=== PATIENT | male | born 1950 | race Caucasian/White ===

== ENCOUNTER 2020-04-02 10:49 | Day surgery (SDC) | payer MEDICARE, MEDICAID ==
[2020-04-02] VITALS (11 sets, daily range): BP systolic 118–198; BP diastolic 56–85
[~2020-04-02] VITALS: Ht 190.5 cm; Wt 97.9 kg
[~2020-04-02 10:49] MED LIST: DILT-36 PO; MAGN400C PO; POTASSIUM PO; ROSU20TA2 PO; VITA-268 PO
[2020-04-02] MEDS ORDERED: LORazepam 0.5 MG tablet PO PRN (11:05)
[2020-04-02] MEDS ORDERED: diphenhydrAMINE 25mg capsule PO PRN (11:05)
[2020-04-02] MEDS ORDERED: normal saline 1,000 ML IV SCH (11:05)
[2020-04-02] MEDS ORDERED: nitroGLYCERIN 0.4mg SUBLingual tab SL PRN ×2 (11:05→14:20)
[2020-04-02 11:40] LABS: BASOPHILS % (AUTO) 0.2 % (0-1); EOSINOPHILS % (AUTO) 0.1 % (0-6); HEMATOCRIT 46.6 % (42.0-52.0); HEMOGLOBIN 15.7 g/dl (14.0-17.9); LYMPHOCYTES # (AUTO) 9.1 X10'3 (1.1-4.8); LYMPHOCYTES % (AUTO) 62.7 % (21-51); MEAN CORPUSCULAR HEMOGLOBIN 31.2 PG (27.0-31.0); MEAN CORPUSCULAR HGB CONC 33.8 g/dL (33.0-36.5); MEAN CORPUSCULAR VOLUME 92.5 FL (78-98); MEAN PLATELET VOLUME 6.9 FL (7.4-10.4); MONOCYTES # (AUTO) 0.6 X10'3 (0-0.9); NEUTROPHILS # (AUTO) 4.8 X10'3 (1.8-7.7); PLATELET COUNT 258 X10'3 (140-440); RED BLOOD COUNT 5.04 X10'6 (4.70-6.10); RED CELL DISTRIBUTION WIDTH 13.4 % (11.5-14.5); WHITE BLOOD COUNT 14.6 X10'3 (4.5-11.0)
[2020-04-02 11:51] LABS: PARTIAL THROMBOPLASTIN TIME 28 SECONDS (22-32)
[2020-04-02 12:02] LABS: ALBUMIN 4.3 G/DL (3.4-5.0); ANION GAP 6 (8-16); BLOOD UREA NITROGEN 6 MG/DL (7-18); BUN/CREATININE RATIO 6.7 (5.4-32.0); CALCIUM 8.8 MG/DL (8.5-10.1); CHLORIDE 101 MMOL/L (99-107); CREATININE 0.89 MG/DL (0.60-1.10); GLUCOSE 102 MG/DL (70-104); POTASSIUM 4.7 MMOL/L (3.5-5.1); SODIUM 137 MMOL/L (135-145); eGFR 85 ML/MIN
[2020-04-02] MEDS ORDERED: ASPI-1264 PO (12:19)
[2020-04-02] MEDS ORDERED: VITC500T PO (12:19)
[2020-04-02] MEDS ORDERED: [UNRECOGNIZED DRUG - OTHER] PO (12:19)
[2020-04-02] MEDS ORDERED: POTA99TA21 PO (12:19)
[2020-04-02] MEDS ORDERED: ALPR0.5T8 PO (12:19)
[2020-04-02] MEDS ORDERED: VITA400C67 PO (12:19)
[2020-04-02] MEDS ORDERED: RESV1TAB2 PO (12:19)
[2020-04-02] MEDS ORDERED: UBID50TA3 PO (12:19)
[2020-04-02] MEDS ORDERED: TURM538C PO (12:19)
[2020-04-02 12:37] LABS: PLATELET ESTIMATE NORMAL; TOTAL CELLS COUNTED 100
[2020-04-02 12:38] LABS: SMUDGE CELLS 1+
[2020-04-02] MEDS ORDERED: midazolam 2 mg/2 ml injection ONE ×2 (13:15→13:41)
[2020-04-02] MEDS ORDERED: iohexol 350 MG/ML 50ML vial IV ONE (13:15)
[2020-04-02] MEDS ORDERED: fentaNYL/PF 50MCG/1 ML 2ML syringe ONE ×2 (13:15→13:41)
[2020-04-02] MEDS ORDERED: iohexol 350MG/ML 100ml bottle IV ONE (13:15)
[2020-04-02] MEDS ORDERED: LIDOcaine 1% (10mg/ml)w/preservative injection 20ml MDV ONE (13:15)
[2020-04-02] MEDS ORDERED: HYDROcodone/acetaminophen 10/325mg tab PO PRN (14:20)
[2020-04-02] MEDS ORDERED: OXAZEpam 15mg capsule PO PRN (14:20)
[2020-04-02] MEDS ORDERED: HYDROcodone/acetaminophen 5mg/325mg tablet PO PRN (14:20)
[2020-04-02] MEDS ORDERED: normal saline 1000ml 1,000 ML IV SCH (14:20)
[2020-04-02] MEDS ORDERED: ondansetron/PF 4mg/2ml inj IV PRN (14:20)
== END 2020-04-02 20:10 | disposition home or self-care (01) ==
LOC: SSTAY O 10:49
PROVIDERS: ATTEND Internal Medicine Cardiovascular Disease
DX: R94.39 Abnormal result of other cardiovascular function study (principal); I25.10 Atherosclerotic heart disease of native coronary artery without angina pectoris; G47.33 Obstructive sleep apnea (adult) (pediatric); I10 Essential (primary) hypertension; I48.0 Paroxysmal atrial fibrillation; F41.9 Anxiety disorder, unspecified; I44.7 Left bundle-branch block, unspecified; I42.9 Cardiomyopathy, unspecified; Z98.890 Other specified postprocedural states; Z88.8 Allergy status to other drugs, medicaments and biological substances; Z79.899 Other long term (current) drug therapy; R06.09 Other forms of dyspnea
CPT/HCPCS: 36415; 71046; 80048; 83880; 84439; 84443; 84480; 85025; 85610; 85730; 93005; 93458; 99152; 99153; C1769; J1644; J2001; J2250; J3010; J7030; Q0163; Q9967; A4620; A6258; C1760

== ENCOUNTER 2020-12-04 05:15 | Day surgery (SDC) | payer MEDICARE, MEDICAID ==
[2020-11-26 12:24] LABS: BASOPHILS % (AUTO) 0.2 % (0-1); EOSINOPHILS % (AUTO) 0.2 % (0-6); MONOCYTES # (AUTO) 0.8 X10'3 (0-0.9); NEUTROPHILS # (AUTO) 5.3 X10'3 (1.8-7.7)
[2020-11-26 12:29] LABS: LYMPHOCYTES # (AUTO) 9.7 X10'3 (1.1-4.8); LYMPHOCYTES % (AUTO) 61.1 % (21-51); MEAN CORPUSCULAR HEMOGLOBIN 31.4 PG (27.0-31.0); MEAN CORPUSCULAR HGB CONC 33.3 g/dL (33.0-36.5); MEAN CORPUSCULAR VOLUME 94.2 FL (78-98); MEAN PLATELET VOLUME 6.9 FL (7.4-10.4); MONOCYTES % (AUTO) 5.1 % (2-12); NEUTROPHILS % (AUTO) 33.4 % (42-75); PRE OP HEMATOCRIT 45.5 % (42.0-52.0); PRE OP HEMOGLOBIN 15.2 g/dL (14.0-17.9); PRE OP PLATELET COUNT 257 X10'3 (140-440); RED BLOOD COUNT 4.83 X10'6 (4.70-6.10); RED CELL DISTRIBUTION WIDTH 13.7 % (11.5-14.5)
[2020-11-26 12:38] LABS: ALBUMIN/GLOBULIN RATIO 1.3 (1.1-1.5); ALKALINE PHOSPHATASE 74 IU/L (46-116); BLOOD UREA NITROGEN 17 MG/DL (7-18); BUN/CREATININE RATIO 16.7 (5.4-32.0); CALCIUM 9.4 MG/DL (8.5-10.1); CHLORIDE 103 MMOL/L (99-107); CREATININE 1.02 MG/DL (0.60-1.10); PRE OP ALT 24 U/L (30-65); PRE OP ANION GAP 9 (8-16); PRE OP AST 15 U/L (10-37); PRE OP BILIRUB, TOTAL 0.5 MG/DL (0.0-1.0); PRE OP GLUCOSE 97 MG/DL (70-104); PRE OP POTASSIUM 3.6 MMOL/L (3.4-5.1); PRE OP SODIUM 140 MMOL/L (135-145); TOTAL CARBON DIOXIDE 28.5 MMOL/L (24-32); TOTAL PROTEIN 7.2 G/DL (6.4-8.2); eGFR 73 ML/MIN
[2020-11-26 12:55] LABS: TOTAL CELLS COUNTED 100
[2020-11-26 12:56] LABS: PLATELET ESTIMATE NORMAL
[2020-12-04] VITALS (15 sets, daily range): BP systolic 125–153; BP diastolic 73–91
[~2020-12-04] VITALS: Ht 190.5 cm; Wt 103.0 kg
[~2020-12-04 05:15] MED LIST changes: +ASPI-1264 PO; +CHOL10006 PO; -MAGN400C PO; -POTASSIUM PO; +RESV1TAB2 PO; +TURM538C PO; +UBID50TA3 PO; -VITA-268 PO; +ZINC50TA67 PO; +ringers solution, lacted 1,000 ML IV SCH
[2020-12-04] MEDS ORDERED: ceFAZolin 2gm in dextrose, iso 50 ML IV ONE (05:30)
[2020-12-04] MEDS ORDERED: famotidine 20mg tablet PO ONE (05:30)
[2020-12-04] MEDS ORDERED: vancomycin 1,500 MG in NS 300ml IV soln IV ONE (05:30)
[2020-12-04] MEDS ORDERED: LIDOcaine 1% (10mg/ml) 2ml vial ONE (06:22)
[2020-12-04] MEDS ORDERED: BUPIVAcaine/PF 2.5 mg/ml (0.25%) 30ml vial ONE (06:54)
[2020-12-04] MEDS ORDERED: cloNIDine hcl/PF 100mcg/ml inj ONE (07:14)
[2020-12-04] MEDS ORDERED: sevoflurane 250ml liquid IH ONE (07:14)
[2020-12-04] MEDS ORDERED: midazolam 2 mg/2 ml injection ONE (07:15)
[2020-12-04] MEDS ORDERED: fentaNYL/PF 50MCG/1 ML 2ML syringe ONE (07:15)
[2020-12-04] MEDS ORDERED: ondansetron/PF 4mg/2ml inj ONE (07:48)
[2020-12-04] MEDS ORDERED: propofol inj 20 ML IV ONE (07:48)
[2020-12-04] MEDS ORDERED: dexamethasone sod phosphate 4mg/ml inj. ONE (07:48)
[2020-12-04] MEDS ORDERED: ROPIVAcaine 0.5% (5mg/ml) 30ml vial ONE (07:48)
[2020-12-04] MEDS ORDERED: LIDOcaine 2% (20mg/ml) 5ml vial ONE (07:48)
[2020-12-04] MEDS ORDERED: rocuronium 10mg/ml inj IV ONE (07:48)
[2020-12-04] MEDS ORDERED: LIDOcaine 1%/PF 5ML 10 MG/ML VIAL ONE (07:48)
[2020-12-04] MEDS ORDERED: morphine 4 MG/ML inj SYRINge IV PRN (08:30)
[2020-12-04] MEDS ORDERED: proCHLORperazine 10 MG/2 ml inj IV PRN (08:30)
[2020-12-04] MEDS ORDERED: ondansetron/PF 4mg/2ml inj IV PRN (08:30)
[2020-12-04] MEDS ORDERED: ringers solution, lacted 1,000 ML IV SCH (08:30)
[2020-12-04] MEDS ORDERED: morphine 2 MG/ML inj. syringe IV PRN (08:30)
[2020-12-04] MEDS ORDERED: acetaminophen 1,000mg/100ml IV 100 ML IV PRN (08:30)
[2020-12-04] MEDS ORDERED: meperidine/PF 25mg/ml syringe IV PRN ×3 (08:30)
[2020-12-04] MEDS ORDERED: glycopyrrolate 0.2mg/ml inj ONE (08:43)
[2020-12-04] MEDS ORDERED: neostigmine methylsulfate 1 MG/ML 10ml vial ONE (08:43)
--- NOTE | 2020-12-04 08:49 | NUR ---
Received from OR via [facility], accompanied by Anesthesiologist DR ADAMS and report given by Anesthesiologist. PT DROWSY, DENIES PAIN TO RIGHT SHOULDER, C/O EPIGASTRIC PAIN, DR ADAMS ORDERED [facility], WILL GIVE AND MONITOR. RIGHT SHOULDER W/MEDI-PORE TAPE COVERING INCISION W/SMALL AMT OF S/S DRAINAGE. Addendum: 12/04/20 at 0904 by Pema Brooks RN Amended: Links added.
[2020-12-04] MEDS ORDERED: mag hydrox/Alum hydrox/simeth 30ml oral suspension PO ONE (08:55)
[2020-12-04] MEDS ORDERED: ipratropium/albuterol 3ml nebule NEB PRN (10:30)
--- NOTE | 2020-12-04 10:33 | NUR ---
EPIGASTRIC PAIN SUBSIDED AFTER TAKING MAALOX, PT STATES HE FEELS CONGESTED, CALL INTO [facility]. Addendum: 12/04/20 at 1034 by Pema Brooks RN Amended: Links added.
--- NOTE | 2020-12-04 11:01 | NUR ---
PT STATES HE NO LONGER FEELS CONGESTED AFTER DUO-NEB TX. Addendum: 12/04/20 at 1102 by Pema Brooks RN Amended: Links added.
--- NOTE | 2020-12-04 11:19 | NUR ---
PT UP AND ABLE TO AMBULATE SAFELY, VOIDED, DR VAUGHN IN TO SEE PT AND NEW PRESCRIPTION GIVEN. PT STATES BREATHING IS BACK TO NORMAL AND HAS NO MORE CONGESTION. PT D/CD TO HOME VIA W/C TO PRIVATE VEHICLE W/O INCIDENT. Addendum: 12/04/20 at 1435 by Pema Brooks RN Amended: Links added.
--- NOTE | 2020-12-04 16:08 | NUR ---
I have reviewed and agree with all medications administered and interventions performed by [facility] Student, Amisha Brand.
== END 2020-12-04 11:19 | disposition home or self-care (01) ==
LOC: PRE-OP 05:15 → PAS 11:19
PROVIDERS: ATTEND Orthopaedic Surgery
DX: T84.84XA Pain due to internal orthopedic prosthetic devices, implants and grafts, initial encounter (principal); S42.031K Displaced fracture of lateral end of right clavicle, subsequent encounter for fracture with nonunion; I48.0 Paroxysmal atrial fibrillation; E78.5 Hyperlipidemia, unspecified; I10 Essential (primary) hypertension; E66.8 Other obesity; Z68.28 Body mass index [BMI] 28.0-28.9, adult; G47.33 Obstructive sleep apnea (adult) (pediatric); K21.9 Gastro-esophageal reflux disease without esophagitis; G89.18 Other acute postprocedural pain; M19.90 Unspecified osteoarthritis, unspecified site; Z85.6 Personal history of leukemia; Z20.822 Contact with and (suspected) exposure to COVID-19; Z98.890 Other specified postprocedural states; Y83.8 Other surgical procedures as the cause of abnormal reaction of the patient, or of later complication, without mention of misadventure at the time of the procedure; Y92.89 Other specified places as the place of occurrence of the external cause; X58.XXXD Exposure to other specified factors, subsequent encounter
CPT/HCPCS: 20680; 23485; 36415; 64415; 71045; 76942; 80053; 82948; 84484; 85007; 85025; 87635; 93005; 94640; 99285; J0735; J1100; J2001; J2250; J2405; J2704; J2710; J3010; J3370; J3490; J7040; A4215; A4618; A6250; A6449; A7000; J2795; J7120

== ENCOUNTER 2020-12-04 13:37 | Emergency (ER) | payer MEDICARE, MEDICAID ==
[~2020-12-04] VITALS: Ht 190.5 cm; Wt 120.6 kg
[~2020-12-04 13:37] MED LIST changes: -ringers solution, lacted 1,000 ML IV SCH
[2020-12-04 14:12] LABS: BASOPHILS % (AUTO) 0.2 % (0-1); EOSINOPHILS % (AUTO) 0 % (0-6); HEMATOCRIT 42.6 % (42.0-52.0); HEMOGLOBIN 14.3 g/dl (14.0-17.9); LYMPHOCYTES # (AUTO) 10.8 X10'3 (1.1-4.8); LYMPHOCYTES % (AUTO) 57.1 % (21-51); MEAN CORPUSCULAR HEMOGLOBIN 31.4 PG (27.0-31.0); MEAN CORPUSCULAR HGB CONC 33.5 g/dL (33.0-36.5); MEAN CORPUSCULAR VOLUME 93.7 FL (78-98); MONOCYTES # (AUTO) 0.1 X10'3 (0-0.9); MONOCYTES % (AUTO) 0.5 % (2-12); NEUTROPHILS % (AUTO) 42.2 % (42-75); PLATELET COUNT 259 X10'3 (140-440); RED BLOOD COUNT 4.54 X10'6 (4.70-6.10); RED CELL DISTRIBUTION WIDTH 13.7 % (11.5-14.5); WHITE BLOOD COUNT 18.8 X10'3 (4.5-11.0)
[2020-12-04 14:34] LABS: ALANINE AMINOTRANSFERASE 24 U/L (12-78); ALBUMIN 4.1 G/DL (3.4-5.0); ALBUMIN/GLOBULIN RATIO 1.3 (1.1-1.5); ALKALINE PHOSPHATASE 65 IU/L (46-116); ANION GAP 12 (8-16); ASPARTATE AMINO TRANSFERASE 20 U/L (10-37); BILIRUBIN,TOTAL 0.5 MG/DL (0.1-1.0); BLOOD UREA NITROGEN 13 MG/DL (7-18); BUN/CREATININE RATIO 12.1 (5.4-32.0); CALCIUM 8.3 MG/DL (8.5-10.1); CHLORIDE 103 MMOL/L (99-107); CREATININE 1.07 MG/DL (0.60-1.10); GLUCOSE 176 MG/DL (70-104); POTASSIUM 3.8 MMOL/L (3.5-5.1); SODIUM 140 MMOL/L (135-145); TOTAL CARBON DIOXIDE 25.5 MMOL/L (24-32); TOTAL PROTEIN 7.2 G/DL (6.4-8.2); eGFR 69 ML/MIN
[2020-12-04] MEDS ORDERED: famotidine 20mg tablet PO ONE (16:05)
[2020-12-04] MEDS ORDERED: mag hydrox/Alum hydrox/simeth 30ml oral suspension PO ONE (16:05)
[2020-12-04] MEDS ORDERED: ondansetron 4mg rapidly disintigrating tab PO ONE (16:05)
[2020-12-04] MEDS ORDERED: LIDOcaine Viscous 15ml cup MM ONE (16:05)
[2020-12-04 16:15] LABS: PLATELET ESTIMATE NORMAL; SMUDGE CELLS 2+; TOTAL CELLS COUNTED 100
[2020-12-04 18:18] VITALS: BP 122/67
== END 2020-12-04 18:19 | disposition home or self-care (01) ==
LOC: ER 13:37
DX: R00.2 Palpitations (principal); R10.13 Epigastric pain; I25.10 Atherosclerotic heart disease of native coronary artery without angina pectoris; I48.91 Unspecified atrial fibrillation; Z98.890 Other specified postprocedural states; Z88.8 Allergy status to other drugs, medicaments and biological substances; Z79.82 Long term (current) use of aspirin; Z79.899 Other long term (current) drug therapy
CPT/HCPCS: 36415; 71045; 80053; 84484; 85007; 85025; 93005; 99285

== ENCOUNTER 2022-04-27 16:12 | Emergency (ER) | payer MEDICARE, MEDICAID ==
[~2022-04-27] VITALS: Ht 190.5 cm; Wt 107.0 kg
[2022-04-27 16:46] LABS: NEUTROPHILS # (AUTO) 3.5 X10'3 (1.8-7.7)
[2022-04-27 16:48] LABS: BASOPHILS % (AUTO) 0.2 % (0-1); EOSINOPHILS % (AUTO) 0.2 % (0-6); HEMATOCRIT 43.8 % (42.0-52.0); HEMOGLOBIN 14.9 g/dl (14.0-17.9); LYMPHOCYTES # (AUTO) 10.6 X10'3 (1.1-4.8); LYMPHOCYTES % (AUTO) 71.8 % (21-51); MEAN CORPUSCULAR HEMOGLOBIN 32.1 PG (27.0-31.0); MEAN CORPUSCULAR VOLUME 94.7 FL (78-98); MEAN PLATELET VOLUME 6.7 FL (7.4-10.4); MONOCYTES # (AUTO) 0.6 X10'3 (0-0.9); MONOCYTES % (AUTO) 4.2 % (2-12); NEUTROPHILS % (AUTO) 23.6 % (42-75); PLATELET COUNT 267 X10'3 (140-440); RED BLOOD COUNT 4.62 X10'6 (4.70-6.10); RED CELL DISTRIBUTION WIDTH 13.3 % (11.5-14.5); WHITE BLOOD COUNT 14.7 X10'3 (4.5-11.0)
[2022-04-27 17:05] LABS: ALANINE AMINOTRANSFERASE 30 U/L (12-78); ALBUMIN 3.7 G/DL (3.4-5.0); ALBUMIN/GLOBULIN RATIO 1.1 (1.1-1.5); ALKALINE PHOSPHATASE 79 IU/L (46-116); AMYLASE 36 U/L (25-115); ANION GAP 7 (8-16); ASPARTATE AMINO TRANSFERASE 17 U/L (10-37); BILIRUBIN,TOTAL 0.4 MG/DL (0.1-1.0); BLOOD UREA NITROGEN 7 MG/DL (7-18); CALCIUM 8.9 MG/DL (8.5-10.1); CHLORIDE 100 MMOL/L (99-107); CREATININE 0.87 MG/DL (0.60-1.10); GLUCOSE 111 MG/DL (70-104); LIPASE 77 U/L (73-393); POTASSIUM 4.3 MMOL/L (3.5-5.1); SODIUM 134 MMOL/L (135-145); TOTAL CARBON DIOXIDE 27.4 MMOL/L (24-32); TOTAL PROTEIN 7.1 G/DL (6.4-8.2); eGFR 87 ML/MIN
[2022-04-27 18:33] LABS: TOTAL CELLS COUNTED 100
[2022-04-27 18:37] LABS: PLATELET ESTIMATE NORMAL
[2022-04-27 18:47] VITALS: BP 158/78
[2022-04-27 18:57] LABS: CLARITY,URINE CLEAR (Clear); COLOR,URINE YELLOW (Yellow); GLUCOSE, URINE NEGATIVE (Neg); KETONES,URINE NEGATIVE (Neg); LEUKOCYTE ESTERASE ,URINE NEGATIVE (Neg); NITRITES, URINE NEGATIVE (Neg); OCCULT BLOOD,URINE NEGATIVE (Neg); PROTEIN,URINE NEGATIVE (Neg); UROBILINOGEN,URINE 0.2 E.U/dL (0.2-1.0)
[2022-04-27 19:02] LABS: UA COLLECTION TYPE NON-SPECIFIED
== END 2022-04-27 20:10 | disposition home or self-care (01) ==
LOC: ER 16:13
DX: R10.84 Generalized abdominal pain (principal); I48.91 Unspecified atrial fibrillation; I25.10 Atherosclerotic heart disease of native coronary artery without angina pectoris; M19.90 Unspecified osteoarthritis, unspecified site; Z87.81 Personal history of (healed) traumatic fracture; Z88.8 Allergy status to other drugs, medicaments and biological substances; Z79.82 Long term (current) use of aspirin; Z79.899 Other long term (current) drug therapy
CPT/HCPCS: 36415; 74176; 80053; 81003; 82150; 83690; 85007; 85025; 99284

== ENCOUNTER 2022-07-12 13:23 | Outpatient (CLI) | payer MEDICARE, MEDICAID | END 2022-07-12 23:59 | disposition home or self-care (01) | LOC: CARD DIAG 13:23 | DX: I05.8 Other rheumatic mitral valve diseases (principal); I45.4 Nonspecific intraventricular block; I48.91 Unspecified atrial fibrillation; R47.01 Aphasia | CPT/HCPCS: 93306 ==

== ENCOUNTER 2023-12-07 09:41 | Day surgery (SDC) | payer MEDICARE, MEDICAID ==
[~2023-12-07] VITALS: Ht 190.5 cm; Wt 102.7 kg
[2023-12-07] VITALS (20 sets, daily range): BP systolic 123–170; BP diastolic 50–86; PULSE 50–74; RESP 12–20; TEMP 97–99; O2SAT 91–97
[2023-12-07] MEDS ORDERED: normal saline 1,000 ML IV SCH (10:15)
[2023-12-07] MEDS ORDERED: LORazepam 0.5 MG tablet PO PRN (10:15)
[2023-12-07] MEDS ORDERED: nitroGLYCERIN 0.4mg SUBLingual tab SL PRN ×2 (10:15→13:55)
[2023-12-07] MEDS ORDERED: diphenhydrAMINE 25mg capsule PO PRN (10:15)
[2023-12-07] MEDS ORDERED: LISI20TA28 PO (10:25)
[2023-12-07] MEDS ORDERED: CARV12.545 PO (10:25)
[2023-12-07] MEDS ORDERED: ALPR0.255 (10:25)
[2023-12-07] MEDS ORDERED: MAGN400C PO (10:26)
[2023-12-07] MEDS ORDERED: midazolam 1 mg/ML 2ml injection ONE ×2 (10:38→12:14)
[2023-12-07] MEDS ORDERED: iohexol 350 MG/ML 50ML vial IV ONE ×2 (10:38→12:10)
[2023-12-07] MEDS ORDERED: iohexol 350MG/ML 100ml bottle IV ONE (10:38)
[2023-12-07] MEDS ORDERED: LIDOcaine 1% 30ml preserv. free vial ONE (10:38)
[2023-12-07] MEDS ORDERED: fentaNYL/PF 50MCG/1 ML 2ML syringe ONE (10:38)
[2023-12-07 10:50] LABS: INR 1.1 INR; PROTHROMBIN TIME 11.4 SECONDS (9.0-12.0)
[2023-12-07 10:55] LABS: ALBUMIN 3.7 G/DL (3.4-5.0); ANION GAP 8 (8-16); BLOOD UREA NITROGEN 10 MG/DL (7-18); CALCIUM 8.9 MG/DL (8.5-10.1); CHLORIDE 103 MMOL/L (99-107); CREATININE 0.91 MG/DL (0.60-1.10); GLUCOSE 100 MG/DL (70-104); POTASSIUM 4.3 MMOL/L (3.5-5.1); SODIUM 139 MMOL/L (135-145); TOTAL CARBON DIOXIDE 28.5 MMOL/L (24-32); eCRCL 89 ML/MIN; eGFR 82 ML/MIN
[2023-12-07 11:20] LABS: BASOPHILS % (AUTO) 0.2 % (0-1); EOSINOPHILS % (AUTO) 0.2 % (0-6); MEAN CORPUSCULAR HGB CONC 33.2 g/dL (33.0-36.5)
[2023-12-07 11:22] LABS: HEMATOCRIT 43.3 % (42.0-52.0); HEMOGLOBIN 14.4 g/dl (14.0-17.9); LYMPHOCYTES # (AUTO) 10.4 X10'3 (1.1-4.8); LYMPHOCYTES % (AUTO) 67.5 % (21-51); MEAN CORPUSCULAR VOLUME 93.6 FL (78-98); MEAN PLATELET VOLUME 7.3 FL (7.4-10.4); MONOCYTES # (AUTO) 0.8 X10'3 (0-0.9); MONOCYTES % (AUTO) 5.3 % (2-12); NEUTROPHILS # (AUTO) 4.2 X10'3 (1.8-7.7); NEUTROPHILS % (AUTO) 26.8 % (42-75); PLATELET COUNT 211 X10'3 (140-440); PRO BRAIN NATRIURETIC PEPTIDE 560 PG/ML (0-125); RED BLOOD COUNT 4.63 X10'6 (4.70-6.10); RED CELL DISTRIBUTION WIDTH 13.7 % (11.5-14.5); WHITE BLOOD COUNT 15.5 X10'3 (4.5-11.0)
[2023-12-07 12:03] LABS: PLATELET ESTIMATE NORMAL; SMUDGE CELLS 1+; TOTAL CELLS COUNTED 100
[2023-12-07] MEDS ORDERED: HYDROcodone/acetaminophen 5mg/325mg tablet PO PRN (13:55)
[2023-12-07] MEDS ORDERED: normal saline 1000ml 1,000 ML IV SCH (13:55)
[2023-12-07] MEDS ORDERED: proCHLORperazine 10 MG/2 ml inj IV PRN (13:55)
[2023-12-07] MEDS ORDERED: OXAZEpam 15mg capsule PO PRN (13:55)
[2023-12-07] MEDS ORDERED: ondansetron/PF 4mg/2ml inj IV PRN (13:55)
[2023-12-07] MEDS: carVEDilol 12.5mg tablet PO SCH (19:46)
[2023-12-07] MEDS: HYDROcodone/acetaminophen 10/325mg tab PO PRN (19:48)
[2023-12-08 02:00] VITALS: BP 138/43; PULSE 60; RESP 12; TEMP 96.9; O2SAT 96
[2023-12-08] MEDS: HYDROcodone/acetaminophen 10/325mg tab PO PRN (02:49)
[2023-12-08 04:00] VITALS: BP 140/69; PULSE 68; RESP 13; TEMP 96; O2SAT 96
[2023-12-08 06:00] VITALS: BP 151/68; PULSE 55; RESP 16; TEMP 97.6; O2SAT 100
[2023-12-08 08:00] VITALS: RESP 16; O2SAT 100
[2023-12-08] MEDS ORDERED: lisinopril 20mg tablet PO SCH (08:00)
[2023-12-08] MEDS ORDERED: aspirin 325mg tablet PO SCH (08:00)
[2023-12-08] MEDS ORDERED: atorvastatin 20mg tablet PO SCH (08:00)
[2023-12-08] MEDS ORDERED: magnesium oxide 400mg tablet PO SCH (08:00)
[2023-12-08] MEDS: carVEDilol 12.5mg tablet PO SCH (09:29)
[2023-12-08 09:30] VITALS: BP_SYST 151; PULSE 63
== END 2023-12-08 10:14 | disposition home or self-care (01) ==
LOC: SSTAY O 09:41 → PCU 3S 16:49 → SSTAY O 12-08 10:14
PROVIDERS: ATTEND Internal Medicine Cardiovascular Disease
DX: I25.119 Atherosclerotic heart disease of native coronary artery with unspecified angina pectoris (principal); I42.9 Cardiomyopathy, unspecified; I44.7 Left bundle-branch block, unspecified; G47.33 Obstructive sleep apnea (adult) (pediatric); I10 Essential (primary) hypertension; E78.5 Hyperlipidemia, unspecified; Z98.890 Other specified postprocedural states; Z85.6 Personal history of leukemia; Z79.82 Long term (current) use of aspirin; Z79.899 Other long term (current) drug therapy; Z88.8 Allergy status to other drugs, medicaments and biological substances
CPT/HCPCS: 36415; 71046; 80048; 83880; 84484; 85025; 85610; 93005; 93458; 99152; 99153; J1644; J2250; J3010; J3490; J7030; Q0163; Q9967; A4615; A6258; C1760; G0378